=== PATIENT | male | born 1940 | race Caucasian/White ===

== ENCOUNTER 2019-01-09 05:32 | Outpatient (CLI) | payer MEDICARE, MEDICAID ==
[~2019-01-09] VITALS: Ht 172.7 cm; Wt 81.6 kg
[2019-01-10] MEDS ORDERED: TAMS0.4C98 PO (09:05)
[2019-01-10] MEDS ORDERED: METF-397 PO (09:05)
[2019-01-10] MEDS ORDERED: FLUO20CA42 PO (09:05)
[2019-01-10] MEDS ORDERED: LEVO50TA6 PO (09:05)
[2019-01-10] MEDS ORDERED: CARB1CAP PO (09:05)
[2019-01-10] MEDS ORDERED: ASPI-586 PO (09:05)
[2019-01-10] MEDS ORDERED: KRIL1CAP18 PO (09:05)
[2019-01-10] MEDS ORDERED: ATOR20TA66 PO (09:05)
[2019-01-10] MEDS ORDERED: PRAM0.5T2 PO (09:05)
[2019-01-10] MEDS ORDERED: CRAN425C2 PO (09:05)
[2019-01-10] MEDS ORDERED: GBPN600T PO (09:05)
[2019-01-10] MEDS ORDERED: FENO160T12 PO (09:05)
[2019-01-10] MEDS ORDERED: MONT10TA24 PO (09:05)
[2019-01-10] MEDS ORDERED: DOCU-238 PO (09:05)
[2019-01-10] MEDS ORDERED: OMEP40CA36 PO (09:05)
[2019-01-10] MEDS ORDERED: MULT-1030 PO (09:05)
[2019-01-10] MEDS ORDERED: DULO60CA58 PO (09:05)
[2019-01-10] MEDS ORDERED: ACET-2307 PO (09:05)
== END 2019-01-10 09:17 ==
LOC: PREOP 05:32
PROVIDERS: ATTEND Orthopaedic Surgery
DX: Z01.818 Encounter for other preprocedural examination (principal)

== ENCOUNTER 2019-02-04 05:49 | Outpatient (CLI) | payer MEDICARE, MEDICAID ==
[~2019-02-04] VITALS: Ht 172.7 cm; Wt 81.6 kg
[~2019-02-04 05:49] MED LIST: ACET-2307 PO; ASPI-586 PO; ATOR20TA66 PO; CARB1CAP PO; CRAN425C2 PO; DOCU-238 PO; DULO60CA58 PO; FENO160T12 PO; FLUO20CA42 PO; GBPN600T PO; KRIL1CAP18 PO; LEVO50TA6 PO; METF-397 PO; MONT10TA24 PO; MULT-1030 PO; OMEP40CA36 PO; PRAM0.5T2 PO; TAMS0.4C98 PO
== END 2019-02-04 13:58 | disposition home or self-care (01) ==
LOC: PREOP 05:49
PROVIDERS: ATTEND Orthopaedic Surgery
DX: Z01.818 Encounter for other preprocedural examination (principal)

== ENCOUNTER 2019-02-10 05:54 | Day surgery (SDC) | payer MEDICARE, MEDICAID ==
[2019-02-10] VITALS (9 sets, daily range): BP systolic 116–148; BP diastolic 49–76
[~2019-02-10] VITALS: Ht 172.7 cm; Wt 82.7 kg
--- OUTSIDE RECORDS SUMMARY | 2019-02-10 05:58 | XMS REPORT | Continuity of Care Document ---
Author Organization Unknown Address Unknown Allergies Active Description Code Type Severity Reaction Onset Reported/Identified Relationship to Patient Clinical Status Yes albuterol [id number] Drug Allergy Severe ANXIETY, ARRHYT 01/10/2019 Yes doxycycline [id number] Drug Allergy Severe SOB/WHEEZING 01/10/2019 Yes fentanyl [id number] Drug Allergy Severe ARRHYTHMIA 01/10/2019 Yes hydrocodone [id number] Drug Allergy Severe SEIZURE 01/10/2019 Yes ibuprofen [id number] Drug Allergy Severe CHEST PAIN 01/10/2019 Yes ipratropium [id number] Drug Allergy Severe ANXIETY, ARRHYT 01/10/2019 Yes levofloxacin [id number] Drug Allergy Severe MUSCLE PAIN 01/10/2019 Yes lorazepam [id number] Drug Allergy Severe SWELLING 01/10/2019 Yes methadone [id number] Drug Allergy Severe SOB/WHEEZING 01/10/2019 Yes morphine [id number] Drug Allergy Severe PALPITATIONS 01/10/2019 Yes Opioids - Morphine Analogues [id number] Drug Allergy Severe SEIZURE 01/10/2019 Yes oxybutynin [id number] Drug Allergy Severe HALLUCINATIONS 01/10/2019 Yes ropinirole [id number] Drug Allergy Severe SWELLING OF TON 01/10/2019 Yes Fbaopqy-Bgm-Ksv Reductase Inhibitor M000476949 Drug Allergy Moderate MUSCLE PAIN 01/10/2019 Yes amoxicillin [id number] Drug Allergy Mild N/V 01/10/2019 Yes azithromycin M716870095 Drug Allergy Mild N/V 01/10/2019 Yes citalopram [id number] Drug Allergy Mild N/A 01/10/2019 Yes oxycodone [id number] Drug Allergy Mild ITCHING 01/10/2019 Yes tramadol [id number] Drug Allergy Mild RASH 01/10/2019 Medications There is no data. Problems Date Dx Coded Attending Type Code Diagnosis Diagnosed By 01/10/2019 JAN HEREDIA DO Ot Z01.818 ENCOUNTER FOR OTHER PREPROCEDURAL EXAMIN 01/10/2019 JAN HEREDIA DO, Ot Z01.818 ENCOUNTER FOR OTHER PREPROCEDURAL EXAMIN 02/04/2019 JAN HEREDIA DO Ot Z01.818 ENCOUNTER FOR OTHER PREPROCEDURAL EXAMIN 02/05/2019 JAN HEREDIA DO Ot Z01.818 ENCOUNTER FOR OTHER PREPROCEDURAL EXAMIN Procedures There is no data. Results There is no data. Encounters ACCT No. Visit Date/Time Discharge Status Pt. Type Provider Facility Loc./Unit Complaint [id number] 02/04/2019 05:49:00 02/04/2019 13:58:00 DIS Outpatient JAN HEREDIA DO [facility] PREOP FAILED HARDWARE [id number] 01/13/2019 11:00:00 01/13/2019 23:59:59 CLS Preadmit JAN HEREDIA DO [facility] SDC FAILED HARDWARE [id number] 01/09/2019 05:32:00 01/10/2019 09:17:00 DIS Outpatient JAN HEREDIA DO [facility] PREOP FAILED HARDWARE
[2019-02-10] MEDS ORDERED: ceFAZolin 2 GM/50 ML NS 50 ML IV ONE (06:30)
[2019-02-10] MEDS: LACTATED RINGERS 1,000 ML IV PRN ×2 (06:43→08:25)
[2019-02-10] MEDS ORDERED: BACITRACIN OINTMENT 28 GM TUBE ONE (06:49)
[2019-02-10] MEDS ORDERED: GENTAMICIN 40 MG/ML 2 ML INJ SDV ONE (06:49)
[2019-02-10] MEDS ORDERED: BUP/EPI 0.5% 1:200,000 (SENSORCAINE) 30 ML VIAL ONE (06:49)
[2019-02-10] MEDS ORDERED: VANCOMYCIN 1000 MG/VIAL ONE (06:49)
[2019-02-10] MEDS ORDERED: ROCURONIUM 10 MG/ML 5 ML SYRINGE IV ONE (06:53)
[2019-02-10] MEDS ORDERED: MIDAZOLAM 2 MG/2 ML (VERSED) VIAL ONE (06:53)
[2019-02-10] MEDS ORDERED: ONDANSETRON 4 MG/2 ML (SDV) Z0FRAN ONE (06:53)
[2019-02-10] MEDS ORDERED: LIDOCAINE PF 2% 5 ML (XYLOCAINE) VIAL ONE (06:53)
[2019-02-10] MEDS ORDERED: proPOfol 200 MG/20 ML (DIPRIVAN) VIAL IV ONE (06:53)
[2019-02-10] MEDS ORDERED: fentaNYL INJECTION 100 MCG/2 ML AMP ONE (06:54)
[2019-02-10] MEDS ORDERED: SEVOFLURANE (ULTANE) 15 ML INHAL SOLN ONE ×3 (06:56→08:01)
[2019-02-10] MEDS ORDERED: CATHETER FLUSH 10 ML SYR IV PRN (07:00)
[2019-02-10] MEDS ORDERED: ASPI-586 PO (07:08)
[2019-02-10] MEDS ORDERED: MIDO10TA PO (07:13)
[2019-02-10] MEDS ORDERED: BACITRACIN 100,000 UNIT/NS 1000 ML POUR BOTTLE IR ONE ×2 (07:15)
[2019-02-10] MEDS ORDERED: GLYCOPYRROLATE 0.2 MG/ML (ROBINUL) 2 ML VIAL ONE (08:07)
[2019-02-10] MEDS ORDERED: NEOSTIGMINE 3 MG/3 ML VIAL ONE (08:07)
--- NOTE | 2019-02-10 08:20 | Discharge Inst-Simple/Standard ---
Discharge Inst-Standard Patient Instructions/Follow Up Plan of Care/Instructions/FU: keep incisions covered clean and dry follow up 2 weeks in clinic tylenol otc prn pain Activity as Tolerated: No Discharge Diet: No Restrictions Return to [facility] For: fever, chills, chest pain, shortness of breath COLLEEN REYES Feb 10, 2019 08:19
[2019-02-10] MEDS ORDERED: fentaNYL INJECTION 100 MCG/2 ML AMP IVP ONE (08:30)
--- NOTE | 2019-02-10 09:52 | Anesthesia-General Post-Op ---
General Patient Condition Mental Status/LOC: Same as Preop Cardiovascular: Satisfactory Nausea/Vomiting: Absent Respiratory: Satisfactory Pain: Controlled Complications: Absent Post Op Complications Complications None Follow Up Care/Instructions Patient Instructions None needed. Anesthesia/Patient Condition Patient Condition Patient is doing well, no complaints, stable vital signs, no apparent adverse anesthesia problems. YOLANDA KING DO Feb 10, 2019 09:52
--- NOTE | 2019-02-10 21:24 | OPERATIVE REPORT ---
DATE OF SERVICE: 02/10/2019 SURGEON: Linden Giron DO PHYSICAL THERAPIST ASSISTANT: OSMAN Chery. This is a medically necessary procedure. The prosthetic assistant was necessary for retraction of vital neurovascular structures. Without an prosthetic assistant, the procedure would not be possible. PREOPERATIVE DIAGNOSES: 1. Painful orthopedic hardware. 2. Failure of internal hardware. POSTOPERATIVE DIAGNOSES: 1. Painful orthopedic hardware. 2. Failure of internal hardware. PROCEDURE PERFORMED: Replacement of pulse generator battery for a spinal cord stimulator. COMPLICATIONS: None. SPECIMEN SENT: None. DRAIN PLACED: None. ANESTHESIA: General endotracheal tube anesthesia with local anesthetic. HISTORY OF PRESENT ILLNESS: The patient is a very pleasant 78-year-old gentleman, who had a spinal cord stimulator placed some time ago by another surgeon. The battery was placed low in his buttock and he experienced severe pain when he would sit as the battery was interposed between his ischial tuberosity in the sitting surface. In addition, the battery quit working. He did wish to have it replaced and relocated higher up. DESCRIPTION OF PROCEDURE: The patient was identified by name on wrist band in the preoperative holding area. His operative site was signed, consent was signed. SCDs were placed. Neuromonitoring was hooked up. Antibiotics were started. He was taken to the operating room theater and placed under general endotracheal tube anesthesia and then transferred to the operating room table in the prone position. He was prepped and draped in the usual sterile fashion. Formal timeout was conducted. I infiltrated the skin and soft tissue with 0.5% Marcaine with epinephrine. I made an incision over the old scar line and dissected my way down to the pulse generator, which I then carefully detached. I made a new incision further cephalad just above his beltline on the right side. I dissected out a pocket in the subcutaneous tissue. I did hook on a [employer] extension lead to give me enough play to move the leads _more___ the cranial. I passed those leads to the new incision. I hooked up the new pulse generator ([place]) I final tightened and tested the connection with the rep, I had a good connection. Therefore, I irrigated both wounds, maintained hemostasis and buried the new pulse generator in the new pocket. Irrigated the wounds utilizing 0 Vicryl followed by 2-0 Vicryl followed by molly for skin. Applied dressings and took the patient in the supine position to the PACU where he awoke without incident. He tolerated the procedure well. PLAN: At this time is to discharge the patient today and is to keep his wound clean and dry, change the dressings daily. Job ID: [id number] DocumentID: [id number] Dictated Date: 02/10/2019 14:07:47 Crystal Lapper Date: 02/10/2019 21:23:43 Dictated By: DO PANDA VILLANUEVA
== END 2019-02-10 10:45 | disposition home or self-care (01) ==
LOC: SDC 05:54
PROVIDERS: ATTEND Orthopaedic Surgery
DX: T85.840A Pain due to nervous system prosthetic devices, implants and grafts, initial encounter (principal); T85.193A Other mechanical complication of implanted electronic neurostimulator, generator, initial encounter; M54.16 Radiculopathy, lumbar region; G89.4 Chronic pain syndrome; Z88.5 Allergy status to narcotic agent; Z79.899 Other long term (current) drug therapy; Z88.8 Allergy status to other drugs, medicaments and biological substances; Z88.6 Allergy status to analgesic agent; Z88.1 Allergy status to other antibiotic agents; Z79.82 Long term (current) use of aspirin; Z79.1 Long term (current) use of non-steroidal anti-inflammatories (NSAID)
CPT/HCPCS: 82962; 87081